=== PATIENT | female | born 2000 | race African-American/Black ===

== ENCOUNTER 2019-03-24 14:46 | Emergency (ER) | payer SELFPAY ==
[2019-03-24 15:24] VITALS: BP 126/78
--- NOTE | 2019-03-24 15:47 | ER Document Report ---
ED General - General Chief Complaint: Cough Stated Complaint: COUGH Time Seen by Provider: 03/24/19 15:40 Notes: 18-year-old female presents with fever, sore throat, nonproductive cough, nasal congestion that is ongoing since Sunday. Patient states the fever is worse at night. States she checked it last night and it was 103. Patient states she has been taking Tylenol which has improved it. Patient denies any nausea/vomiting, abdominal pain, coughing up anything, ear pain. Past Medical History - Social History Smoking Status: Current Every Day Smoker Family History: None Review of Systems - Review of Systems Notes: Constitutional: Positive for fever. HENT: Positive for sore throat, nasal congestion, nonproductive cough. Eyes: Negative for visual changes. Cardiovascular: Negative for chest pain. Respiratory: Negative for shortness of breath. Gastrointestinal: Negative for abdominal pain, vomiting or diarrhea. Genitourinary: Negative for dysuria. Musculoskeletal: Negative for back pain. Skin: Negative for rash. Neurological: Negative for headaches, weakness or numbness. 10 point ROS negative except as marked above and in HPI. Physical Exam - Vital signs Vitals: Temp Pulse Resp BP Pulse Ox 98.7 F 92 20 126/78 H 100 03/24/19 15:23 03/24/19 15:23 03/24/19 15:23 03/24/19 15:23 03/24/19 15:23 - Notes Notes: GENERAL: Well-appearing, well-nourished and in no acute distress. HEAD: Atraumatic, normocephalic. EYES: Extraocular movements intact, sclera anicteric, conjunctiva are normal. ENT: TMs normal, nares patent, oropharynx clear without exudates. Uvula midline without edema, no muffled voice, no trismus. No obvious MAINTENANCE REPAIRER. Moist mucous membranes. NECK: Normal range of motion, supple without lymphadenopathy or JVD. LUNGS: Breath sounds clear to auscultation bilaterally and equal. No wheezes rales or rhonchi. HEART: Regular rate and rhythm without murmurs, rubs or gallops. EXTREMITIES: Normal range of motion, no pitting or edema. No clubbing or cyanosis. NEUROLOGICAL: Cranial nerves II through XII grossly intact. Normal speech, normal gait. PSYCH: Normal mood, normal affect. SKIN: Warm, Dry, normal turgor, no rashes or lesions noted. Course - Re-evaluation Re-evalutation: 03/24/19 nontoxic, well-appearing 18-year-old female presents with upper re spiratory infection symptoms. No muffled voice, no trismus, uvula midline without edema. No obvious MAINTENANCE REPAIRER. Lungs clear to auscultation bilaterally. Regular rate and rhythm. PE is otherwise unremarkable. Flu test, strep test, and chest x-ray were ordered. 03/24/19 18:23 CXR negative. Flu test neg. Strep neg. Will treat pt with symptomatic relief and give follow up with PCP. Strict return precautions given. All questions/concerns addressed prior to discharge. - Vital Signs Vital signs: Temp Pulse Resp BP Pulse Ox 98.7 F 92 20 126/78 H 100 03/24/19 15:23 03/24/19 15:23 03/24/19 15:23 03/24/19 15:23 03/24/19 15:23 Discharge - Discharge Clinical Impression: Viral URI with cough Condition: Stable Disposition: HOME, SELF-CARE Instructions: Upper Respiratory Illness ([facility]) Additional Instructions: Your chest x-ray did not show any pneumonias and was otherwise normal. Your flu test was negative and your rapid strep was also negative. Please take medica tions as prescribed. Please follow-up with your primary care doctor or 1 of the clinics listed in 3 to 5 days. Return immediately to ER if you start having any worsening symptoms, including fever not controlled by Tylenol/Motrin, inability to open your mouth, worsening sore throat, coughing up blood, abdominal pain, nausea/vomiting, chest pain, shortness of breath, or any other symptoms that are concerning to you. Prescriptions: Benzonatate [Tessalon Perles 100 mg Capsule] 100 mg PO Q8HP PRN #40 capsule PRN Reason: Fexofenadine/Pseudoephedrine [Seda-D 24 Hour Tablet] 1 each PO DAILY #20 tab.er.24h Fluticasone Propionate [Flonase Nasal [place] 50 Mcg/[place] 16 gm] 2 sprays NASL Q12 #1 inhaler Forms: Return to Work Referrals: VELIA HASTINGS MD [COMMUNITY BASED STAFF] - Follow up in 3-5 days [facility] [Provider Group] - Follow up in 3-5 days
--- NOTE | 2019-03-24 16:52 | RADIOLOGY REPORT (SQ) ---
EXAM DESCRIPTION: CHEST 2 VIEWS COMPLETED DATE/TIME: 03/24/2019 4:42 pm REASON FOR STUDY: cough, fever COMPARISON: None. EXAM PARAMETERS: NUMBER OF VIEWS: two views TECHNIQUE: Digital Frontal and Lateral radiographic views of the chest acquired. RADIATION DOSE: NA LIMITATIONS: none FINDINGS: LUNGS AND PLEURA: No opacities, masses or pneumothorax. No pleural effusion. MEDIASTINUM AND HILAR STRUCTURES: No masses or contour abnormalities. HEART AND VASCULAR STRUCTURES: Heart normal size. No evidence for failure. BONES: No acute findings. HARDWARE: None in the chest. OTHER: No other significant finding. IMPRESSION: NO ACUTE RADIOGRAPHIC FINDING IN THE CHEST. TECHNICAL DOCUMENTATION: JOB ID: [id number] 2010 [employer]- All Rights Reserved Reading location - IP/workstation name: [email or web address]
[2019-03-24 18:11] LABS: A TYPE INFLUENZA AG NEGATIVE (NEGATIVE); B INFLUENZA AG NEGATIVE (NEGATIVE)
== END 2019-03-24 18:57 | disposition home or self-care (01) ==
LOC: ER 14:46
DX: J06.9 Acute upper respiratory infection, unspecified (principal); R50.9 Fever, unspecified; R09.81 Nasal congestion; F17.200 Nicotine dependence, unspecified, uncomplicated
CPT/HCPCS: 36415; 71046; 84703; 87070; 87804; 87880; 99283